=== PATIENT | female | born 1950 | race Caucasian/White ===

== ENCOUNTER 2025-04-16 19:20 | Emergency (ER) | payer MEDICARE, MEDICAID ==
[~2025-04-16] VITALS: Ht 162.6 cm; Wt 68.8 kg
[2025-04-16 19:47] VITALS: BP 138/74; PULSE 91; O2SAT 97
--- NOTE | 2025-04-16 20:24 | ELECTROCARDIOGRAPH REPORT ---
[facility] Test Date: 2025-04-16 Test Time: 20:21:44 Pat Name: ERIS PINO Department: [facility] Patient ID: [id number] Room: Gender: F Etl Software Engineer: TIFFANIE : 1950 Requested By: DEL RO Order Number: [id number] Reading MD: Dr. Bao Self Measurements Intervals Welches Rate: 91 P: 65 WY: 143 QRS: 56 QRSD: 83 T: 60 QT: 364 QTc: 448 Interpretive Statements Sinus rhythm Electronically Signed On 04-17-2025 17:30:[address] Bao Self Please click the below link to view image of tracing.
[2025-04-16 20:40] LABS: MEAN PLATELET VOLUME 8.0 FL (7.4-10.4); RED CELL DISTRIBUTION WIDTH 13.3 % (11.5-14.5)
--- NOTE | 2025-04-16 20:45 | RADIOLOGY REPORT ---
EXAM: DI CHEST,SINGLE VIEW CLINICAL HISTORY: CP TECHNIQUE: Single PA view of the chest WID: COMPARISON: None FINDINGS: Lines and tubes: None Chest: The heart size and pulmonary vasculature is within normal limits. Calcified plaque projects over the aortic arch. No pleural effusion, pneumothorax, or consolidation. The osseous structures are grossly intact. IMPRESSION: 1. No acute cardiopulmonary abnormality.
[2025-04-16 20:57] LABS: LEUKOCYTE ESTERASE ,URINE NEGATIVE (Neg); NITRITES, URINE NEGATIVE (Neg); OCCULT BLOOD,URINE TRACE-INTACT (Neg)
[2025-04-16 21:02] LABS: CREATININE 0.48 MG/DL (0.40-0.90); PRO BRAIN NATRIURETIC PEPTIDE 127 PG/ML (0-125); TOTAL CARBON DIOXIDE 31.3 MMOL/L (24-32); eCRCL 89 ML/MIN; eGFR > 90 ML/MIN
[2025-04-16 21:03] LABS: UA COLLECTION TYPE CLN CATCH MIDSTREAM
[2025-04-16 21:04] LABS: AMORPHOUS PHOSPHATES 3+; SQUAMOUS EPITHELIAL CELL,UR NONE SEEN /LPF (FEW)
[2025-04-16 22:06] VITALS: RESP 18
--- NOTE | 2025-04-16 22:45 | Physician Documentation ---
History of Present Illness ~ Chief Complaint: Edema Stated Complaint: LEG SWELLING Time Seen by MD: 21:26 OK to notify your PCP?: Yes Source: patient Mode of Arrival: EMS Exam Limitations: no limitations HPI 75-year-old female presents with bilateral lower extremity swelling for the past 3 days. She denies any tenderness to her legs. She states that she is new to the area and has been busy sitting in the car for long periods of time while looking for a new house as well as moving her belongings. She reports that she normally eats a very clean diet but she has been eating fast food hamburgers every day while moving. She reports that she normally drinks adequate amount of water although with the move she did not pack enough so she has decreased water intake. He has noticed having dark colored urine which has been improving today with increased water intake. Denies any cardiac history, chest pain or shortness of breath. Medication Reconciliation Allergies: Coded Allergies: No Known Allergies (Unverified , 04/16/25) Review of Systems All Other Systems at this time: Reviewed and Negative Physical Exam Vital Signs: RN Vital Signs have been reviewed: Yes, Temperature: 98.2, Source: Oral, Heart Rate: 91, Respiratory Rate: 18, BP: 138/74, Pulse Oximetry: 97, Weight: 68.800 Pulse Oximetry Reflects: adequate oxygenation General Appearance General: Alert, no apparent distress. HEENT: PERRL, EOMI, no injection, moist mucous membranes. Neck: Full range of motion. Respiratory: Lungs clear, no respiratory distress. Chest: No accessory muscle use. Cardiovascular: Regular rate and rhythm, no murmurs. Gastrointestinal: Soft, nontender, nondistended. Bowels sounds present. Extremities: Normal range of motion, no deformity. Nonpitting 2+ edema to bilateral lower extremities, no tenderness to palpation, no warmth or erythema. Neurologic: Oriented x4. Psychiatric: Normal mood and affect. Skin: Normal color, warm and dry. no ecchymosis. Progress Results/Orders Reviewed/noted all lab results: Yes Results/Orders Vital Signs 04/16/25 04/16/25 19:47 22:06 Temp 98.2 Pulse 91 Resp 17 18 B/P (MAP) 138/74 Pulse Ox 97 Laboratory Tests Test 04/16/25 20:05 04/16/25 20:34 9/6/25 22:11 Urine Specimen Description Cln catch midstream Urine Color Yellow Urine Clarity Cloudy Urine pH 7.0 Urine Specific [place] 1.020 Urine Protein Negative Urine Glucose (UA) Negative Urine Ketones Negative Urine Occult Blood Trace-intact Urine Nitrite Negative Urine Bilirubin Negative Urine Urobilinogen 0.2 Urine Leukocyte Esterase Negative Urine RBC 0-2 Urine WBC 0-4 Urine Squamous Epithelial Cells None seen Urine Amorphous Phosphates 3+ Urine Bacteria Few Urine Culture Indicated Not ind Volume Urine Centrifuged 10 ml Urine Comment White Blood Count 8.0 Red Blood Count 4.11 L Hemoglobin 12.7 Hematocrit 38.2 Mean Corpuscular Volume 93.1 Mean Corpuscular Hemoglobin 31.0 Mean Corpuscular Hemoglobin Concent 33.4 Red Cell Distribution Width 13.3 Platelet Count 292 Mean Platelet Volume 8.0 Neutrophils (%) (Auto) 69.6 Lymphocytes (%) (Auto) 19.4 L Monocytes (%) (Auto) 8.1 Eosinophils (%) (Auto) 2.1 Basophils (%) (Auto) 0.8 Neutrophils # (Auto) 5.6 Lymphocytes # (Auto) 1.6 Monocytes # (Auto) 0.7 Eosinophils # (Auto) 0.2 Basophils # (Auto) 0.1 CBC Comment D-Dimer 0.68 H D-Dimer Comment Sodium Level 141 Potassium Level 3.5 Chloride Level 105 Carbon Dioxide Level 31.3 Anion Gap 5 L Blood Urea Nitrogen 8 Creatinine 0.48 Estimated GFR/1.73 m2 > 90 BUN/Creatinine Ratio 16.7 Glucose Level 100 Calcium Level 8.8 Troponin I High Sensitivity 8 8 Pro-B-Type Natriuretic Peptide 127 H Albumin 3.2 L Chemistry Comments Troponin I High Sens Percent Delta 0 Troponin I Hi Sens Absolute Change 0 EKG/XRAY/CT/US/VASC/MRI EKG : Additional Comment Electrocardiogram: as interpreted by me; normal sinus rhythm, no axis deviation, no acute ischemia, normal intervals, no pre-excitation pattern. Rate: 91 Chest X-Ray : Additional Comments Chest x-ray: as interpreted by me; no large effusion, no large infiltrate, normal mediastinum. Vascular : Impression Vascular study as interpreted by me: small Franco cyst behind left knee, no evidence of superficial venous thrombosis or deep venous thrombosis. Heart Score: Heart Score Response (Comments) Value History N/A 0 EKG Normal 0 Age >65 2 Risk Factors No known risk factors 0 Troponin Normal limit 0 Total 2 Medical Decision Making Findings She has bilateral lower leg edema likely due to her sitting in his static seated position for hours on end while driving around and moving. She reports that she has increased salt intake in her diet and has decreased water intake over the past 3 days. A cardiac protocol was ordered in triage. Her EKG is normal as well as her chest x-ray. Her troponins are negative and her proBNP is slightly elevated at 127, when the cut off is 125. She does not have any cardiac history such as high blood pressure, high cholesterol or heart attacks. She states that she does not have any cardiac history in her family either. She denies any chest pain, shortness of breath or leg pain. Her vascular study to rule out a DVT was normal with an incidental finding of a small Franco cyst behind the left knee. I whenever these findings with the patient and she was unaware that she had a Franco cyst behind her left knee as she has 0 pain or swelling there. Her age-adjusted D-dimer is normal. I offered her admission to help decrease the swelling in her legs and further investigate the slight increase in her proBNP, she declined admission. Her heart score is 2. We discussed her discharge instructions and return instructions. Differential Dx:Considerations: Include: Congestive heart failure, Deep venous thrombosis, Malnutrition, Popliteal vein aneurysm Departure Disposition: 01 HOME / SELF CARE / HOMELESS Impression: Primary Impression: Edema of lower extremity Condition: Stable Discharge Instructions: Edema Additional Instructions: Please refrain from eating a high salt diet. Make sure you stay well hydrated and try using compression socks when you are sitting in the car for long periods of time. Please keep your feet elevated, especially at nighttime, to help decrease the swelling in your legs and feet. Referrals: NO PRIMARY CARE PROVIDER (PCP) Education Educated: Patient Educated regarding: diagnosis, treatment, prognosis, need for follow up Additional Comment Medical Screen Exam This patient recieved a medical screening examination. After reviewing the individual's medical complaints with presenting symptoms and performing an appropriate physical examination, it was determined that no immediate life- threatening emergency medical condition is present. This individual is also not a women having contractions. Signature Scribe Signature: . Attestation: Scribed for Kelly Duckworthp by Kelly Winn NP . 04/16/25 22:57 Parts of this note were created using [employer] voice recognition software pro gram. While efforts were made to correct any mistakes made by this voice recognition software program, nonsensical phrases may remain in this note. In addition, there may be errors and syntax, grammar, content and spelling. KELLY DUCKWORTH [facility] Apr 16, 2025 22:45
[2025-04-16 22:51] VITALS: TEMP 98.2
--- NOTE | 2025-04-16 23:01 | VASCULAR REPORT ---
CLINICAL HISTORY: Bilateral leg swelling for 3 days, mild shortness of breath TECHNIQUE: Color and duplex doppler imaging of the bilateral lower extremity veins was performed. Ves tani compression if possible was also performed. WID: COMPARISON: None FINDINGS: Right Lower Extremity: Right common femoral vein: Normal compressibility and flow. Right femoral vein: Normal compressibility and flow. Right popliteal vein: Normal compressibility and flow. Proximal calf veins are normally compressible. Left Lower Extremity: Left common femoral vein: Normal compressibility and flow. Left femoral vein: Normal compressibility and flow. Left popliteal vein: Normal compressibility and flow. Proximal calf veins are normally compressible. A Franco's cyst is seen in the left popliteal fossa measuring 1.8 x 1.1 cm. Reactive appearing left inguinal lymph node measuring 2.1 x 0.6 cm. IMPRESSION: 1. NO SONOGRAPHIC EVIDENCE FOR DEEP VENOUS THROMBOSIS IN THE BILATERAL LOWER EXTREMITY VEINS. 2. Franco's cyst in the left popliteal fossa.
== END 2025-04-16 22:51 | disposition home or self-care (01) ==
LOC: ER 19:22
DX: R60.0 Localized edema (principal); R06.02 Shortness of breath
CPT/HCPCS: 36415; 71045; 80048; 81001; 83880; 84484; 85025; 85379; 93005; 93970; 99285